=== PATIENT | male | born 1935 | race Caucasian/White ===

== ENCOUNTER 2017-01-20 15:42 | Inpatient (IN) | payer OTHER, MEDICARE ==
[~2017-01-20] VITALS: Ht 182.9 cm; Wt 102.1 kg
[~2017-01-20 15:42] MED LIST: ASPI81TA2 PO; FURO20TA4 PO; GLU500 PO; LISI-217 PO; PRIM50TA31 PO; PRO20 PO; SIMV40TA2 PO
[2017-01-20 15:50] VITALS: BP 82/49; PULSE 81; RESP 14; TEMP 97; O2SAT 96
--- NOTE | 2017-01-20 16:20 | NUR ---
Patient to ER bed 6 to gown for evaluation. Side rails up. Report given to Violet BAZAN.
--- NOTE | 2017-01-20 16:36 | NUR ---
ER at bedside examining patient.
--- NOTE | 2017-01-20 16:36 | NUR ---
Placed on cardiac sonographer, blood pressure machine and pulse oximeter. To gown for exam. Side rails up.
--- NOTE | 2017-01-20 16:37 | NUR ---
# 20 gauge angiocath placed to right hand. Use of asceptic technique. Opsite placed over site. Blood return noted. Blood for lab drawn from site. Flushed with 10 cc of normal saline. No evidence of infiltration noted. Patient tolerated well.
--- NOTE | 2017-01-20 16:40 | NUR ---
pt O2 sat 91% on room air, placed pt on O2 2L nasal cannula, o2 sat increased to 97%
--- NOTE | 2017-01-20 16:43 | NUR ---
brought in via wheelchair accompanied by his ,c/o general weakness.falling twice in the past two weeks,pt is awake,alert,oriented x4. speech is clear,equal combiner,both legs are weak. breath even,non-labor,skin is warm and pink.
--- NOTE | 2017-01-20 16:48 | NUR ---
transported to ct scan via [facility]
[2017-01-20] MEDS ORDERED: TRAZ-126 PO (16:54)
[2017-01-20] MEDS ORDERED: LIP40 PO (17:02)
[2017-01-20] MEDS ORDERED: BRIN8DRO BOTH EYES ×2 (17:03→17:06)
--- NOTE | 2017-01-20 17:04 | NUR ---
returned back from the ct can
[2017-01-20] MEDS ORDERED: TRAV2.5D BOTH EYES (17:05)
[2017-01-20 17:20] LABS: BASOPHILS # (AUTO) 0.1 K/uL (0.0-0.2); BASOPHILS % (AUTO) 0.6 % (0.0-2.0); EOSINOPHILS # (AUTO) 0.7 K/uL (0.0-0.4); EOSINOPHILS % (AUTO) 7.6 % (0.0-4.0); HEMATOCRIT 38.8 % (36-54); HEMOGLOBIN 13.1 g/dL (14.0-18.0); MEAN CORPUSCULAR HEMOGLOBIN 31 pg (27-31); MEAN CORPUSCULAR HGB CONC 34 % (32-36); MEAN CORPUSCULAR VOLUME 93 fL (79.0-98.0); MONOCYTES # (AUTO) 0.6 K/uL (0.0-1.0); MONOCYTES % (AUTO) 6.5 % (1.7-9.3); NEUTROPHILS # (AUTO) 4.8 K/uL (1.8-7.7); NEUTROPHILS % (AUTO) 52.3 % (40.0-70.0); PLATELET COUNT (AUTO) 141 K/uL (130-430); RED BLOOD CELL COUNT(AUTO) 4.17 MIL/uL (4.2-6.2); RED CELL DISTRIBUTION WIDTH 12.6 % (9.0-15.0); WHITE BLOOD COUNT (AUTO) 9.2 K/uL (4.8-10.8)
[2017-01-20 17:29] LABS: CALCIUM 8.9 mg/dL (8.4-11.0); CHLORIDE 104 mmol/L (98-107); CREATININE 1.46 mg/dL (0.55-1.30); GLUCOSE 108 mg/dL (70-99); POTASSIUM 3.7 mmol/L (3.5-5.1); PROTHROMBIN TIME 10.4 SECS (9.5-12.5); SODIUM SERUM 137 mmol/L (136-145); UREA NITROGEN, BLOOD 22 mg/dL (8-21)
[2017-01-20 17:33] LABS: ANION GAP < 3 (5-15)
--- NOTE | 2017-01-20 17:33 | NUR ---
Medication reconciliation completed by esthela BAZAN with information provided by family. Any prior medication reconciliation on file was reviewed and corrected.
[2017-01-20 17:46] LABS: ALANINE AMINOTRANSFERASE 31 U/L (12-78); ALBUMIN 3.3 g/dL (3.4-4.8); ASPARTATE AMINOTRANSFERASE 21 U/L (10-37); FREE T4 (FREE THYROXINE) 0.5 ng/dL (0.6-1.6); TOTAL BILIRUBIN 0.2 mg/dL (0.0-1.0); TOTAL PROTEIN, SERUM 6.6 g/dL (6.4-8.3)
[2017-01-20 17:49] LABS: ALCOHOL, BLOOD < 3 mg/dL (<10)
--- NOTE | 2017-01-20 18:26 | NUR ---
# 14 FR In and Out catheter with use of sterile technique. Immediate return of 100ml urine noted. Urine sample collected and sent to lab. Pt tolerated procedure . Patient unable to toilet self.
[2017-01-20] MEDS ORDERED: cefTRIAXone 1 GM IVPB PREMIX 50 ML IV ONE (18:30)
[2017-01-20] MEDS ORDERED: NACL 0.9% 1,000 ML IV ONE (18:30)
[2017-01-20 18:47] LABS: BARBITURATE, URINE POSITIVE (NEG <=200); BENZODIAZEPINE, URINE NEGATIVE (NEG <=150); CANNABINOID, URINE NEGATIVE (NEG <=50); COCAINE, URINE NEGATIVE (NEG <=150); METHAMPHETAMINES SCREEN,URINE NEGATIVE (NEG <=500); OPIATE, URINE NEGATIVE (NEG <=100); PHENCYCLIDINE SCREEN,URINE NEGATIVE (NEG <=25); UR TRICYCLIC ANTIDEPRESSANTS NEGATIVE (NEG <=300); URINE AMPHETAMINE NEGATIVE (NEG <=500); URINE METHADONE NEGATIVE (NEG <=200); URINE OXYCODONE SCREEN NEGATIVE (NEG <=100); URINE PROPOXYPHENE SCREEN NEGATIVE (NEG <=300)
--- NOTE | 2017-01-20 18:55 | NUR ---
decision for admission,Dr england at bedside examing pt and speaking to the family
--- NOTE | 2017-01-20 19:06 | NUR ---
hand off to mine shifter Josseline BAZAN.
[2017-01-20] MEDS ORDERED: INSULIN ASPART 100 UNITS/ML, 10 ML VIAL (NovoLOG) SUBCUT PRN (19:15)
--- NOTE | 2017-01-20 19:34 | NUR ---
ADMIT NOTE Received pt from ER to the floor with a diagnosis of ALOC. Admission process initiated.
--- NOTE | 2017-01-20 19:40 | NUR ---
Patient will be admitted under the care of Dr. Stiles. Admitted to telemetry unit. Will go to room 105A. Summary report printed. Report will be given at bedside.
--- NOTE | 2017-01-20 19:41 | NUR ---
Patient transported to room 105 by 1 RN and 1 via gurney without incident. No acute distress or SOB noted upon transport to the room. Vital signs within normal limits. Report given to BENI Briones. All belongings put in a bag and left at bedside. at bedside.
[2017-01-20 19:45] VITALS: BP 124/69; PULSE 56; RESP 18; TEMP 98; O2SAT 94
--- NOTE | 2017-01-20 20:00 | NUR ---
Nursing Note Pt is resting comfortably in bed with family members at the bedside. Plan of care was discussed with pt and family. All their questions were answered. Pt denies pain or discomfort at this time. Speech is clear and pt is able to make his needs known. Pt was oriented to his room and surrounding. Skin is warm and dry to touch. No signs or symptoms of hypoglycemia or hyperglycemia noted. IV site in Rt hand is patent and no signs of infiltration noted. Fall precautions are in place due to high risk for fall (Juárez score of 85). Pt has had multiples falls and two brain surgeries for Subdural Hematomas in 2013 and 2015. Call light is with pt and bed alarm is on. Pt was instructed to call for assistance as needed and pt verbalized understanding. Pt was able to demonstrate use of call light. Three side rails are up. Bed is in the lowest and locked positions. Pt's room is across for the Nurses' Station and pt will be monitored closely to prevent him from falling. Pt is incontinent of urine and will be given incontinent care as needed with barrier cream application to prevent skin breakdown. Pt will be repositioned from side to side every 2 hours due to Clinton score of 18 and limited mobility.
[2017-01-20] MEDS ORDERED: KCL 20 mEq in 100 mL (PREMIX) 100 ML IV ONE (20:26)
[2017-01-20] MEDS: PRIMIDONE 50 MG TABLET PO SCH (20:39)
--- NOTE | 2017-01-20 20:40 | NUR ---
Blood Sugar Accucheck 98. Skin remains warm and dry to touch. Family members are still visiting at the bedside. Pt was given 2 one half Wykoff sandwiches, 2 pudding cups and 1 cup of orange juice per family's request and pt ate 100%. Will continue to monitor pt.
[2017-01-20] MEDS: POTASSIUM CHLORIDE 10 MEQ in NACL 0.9% 1,000 ML IV SCH (20:42)
--- NOTE | 2017-01-20 22:00 | NUR ---
Rounds pt is sleeping without any respiratory distress noted. Fall precautions are in place.
[2017-01-20] MEDS ORDERED: ACETAMINOPHEN 650 MG SUPP.RECT RC PRN (22:30)
[2017-01-20 23:55] VITALS: BP 126/78; PULSE 62; RESP 18; TEMP 97.2; O2SAT 94
--- NOTE | 2017-01-21 | NUR ---
Rounds Pt continues to sleep without any respiratory distress noted. Fall precautions are in place and IVF is infusing well.
--- NOTE | 2017-01-21 02:00 | NUR ---
Rounds Pt is sleeping without any distress noted. IVF is infusing well. Call light is with pt and bed alarm is on.
--- NOTE | 2017-01-21 04:00 | NUR ---
Rounds Pt is sleeping comfortably in bed without any acute distress noted. Fall precautions are in place.
[2017-01-21 04:06] VITALS: BP 137/73; PULSE 56; RESP 18; TEMP 97.4; O2SAT 97
--- NOTE | 2017-01-21 05:30 | NUR ---
Rounds Pt is sleeping comfortably in bed. No acute distress noted. IVF is infusing well.
--- NOTE | 2017-01-21 06:54 | NUR ---
Closing Note Pt is awake and resting comfortably in bed. No acute distress noted. IVF is infusing well and call light is with pt. All pt's needs were attended to. No fall or injury noted this shift. Accucheck 75 this AM and no Insulin coverage needed. Skin remains warm and dry to touch. Will endorse to day shift nurse.
[2017-01-21 07:28] LABS: BASOPHILS % (AUTO) 0.3 % (0.0-2.0); EOSINOPHILS # (AUTO) 0.6 K/uL (0.0-0.4); EOSINOPHILS % (AUTO) 8.4 % (0.0-4.0); HEMOGLOBIN 12.3 g/dL (14.0-18.0); LYMPHOCYTES % (AUTO) 40.8 % (20.5-51.5); MEAN CORPUSCULAR HEMOGLOBIN 32 pg (27-31); MEAN CORPUSCULAR HGB CONC 33 % (32-36); MEAN CORPUSCULAR VOLUME 94 fL (79.0-98.0); MONOCYTES # (AUTO) 0.6 K/uL (0.0-1.0); MONOCYTES % (AUTO) 7.7 % (1.7-9.3); NEUTROPHILS # (AUTO) 3.2 K/uL (1.8-7.7); NEUTROPHILS % (AUTO) 42.8 % (40.0-70.0); PLATELET COUNT (AUTO) 126 K/uL (130-430); RED BLOOD CELL COUNT(AUTO) 3.92 MIL/uL (4.2-6.2); RED CELL DISTRIBUTION WIDTH 13.2 % (9.0-15.0); WHITE BLOOD COUNT (AUTO) 7.4 K/uL (4.8-10.8)
--- NOTE | 2017-01-21 07:30 | NUR ---
INITIAL NOTE RECEIVED PATIENT FROM LITERACY EDUCATION PROFESSOR NURSE, PATIENT IS CURRENTLY RESTING IN BED, NO SIGNS OF DISTRESS NOTED, PATIENT HAS NO COMPLAINTS OF PAIN OR DISCOMFORT AT THIS TIME, ASSESSMENT COMPLETE, PATIENT HAS IV ON RIGHT HAND, IV FLUIDS INFUSING, NO SIGNS OF INFILTRATION NOTED, PATIENT IS CURRENTLY ON O2 SATING AT 95%, INSTRUCTED PATIENT TO USE CALL HOOPER IF ASSISTANCE IS NEEDED, PATIENT VERBALIZED UNDERSTANDING, CALL HOOPER LEFT NEXT TO PATIENT'S HAND, BED IN LOWEST POSITION, BED ALARM ON, TWO SIDE RAILS UP FOR PATIENT'S SAFETY, FALL PRECAUTIONS IN PLACE, WILL CONTINUE TO MONITOR PATIENT.
[2017-01-21 07:55] LABS: ALANINE AMINOTRANSFERASE 28 U/L (12-78); ALBUMIN 2.9 g/dL (3.4-4.8); ANION GAP 2 (5-15); ASPARTATE AMINOTRANSFERASE 18 U/L (10-37); CALCIUM 8.6 mg/dL (8.4-11.0); CHLORIDE 107 mmol/L (98-107); CREATININE 1.27 mg/dL (0.55-1.30); GLUCOSE 93 mg/dL (70-99); POTASSIUM 3.7 mmol/L (3.5-5.1); SODIUM SERUM 141 mmol/L (136-145); TOTAL BILIRUBIN 0.2 mg/dL (0.0-1.0); UREA NITROGEN, BLOOD 16 mg/dL (8-21)
[2017-01-21 08:03] VITALS: BP 137/71; PULSE 66; RESP 18; TEMP 96.9
[2017-01-21] MEDS: FAMOTIDINE 20 MG TABLET PO SCH (08:16)
[2017-01-21] MEDS: FLUoxetine HCL 20 MG CAPSULE (PROzac) PO SCH (08:16)
[2017-01-21] MEDS: ASPIRIN 81 MG TAB.CHEW PO SCH (08:16)
[2017-01-21] MEDS: PRIMIDONE 50 MG TABLET PO SCH ×3 (08:17→21:05)
--- NOTE | 2017-01-21 08:25 | NUR ---
MEDICATION PATIENT RECEIVED MORNING MEDICATIONS, EDUCATED PATIENT ON POTENTIAL SIDE EFFECTS; PATIENT VERBALIZED UNDERSTANDING, CALL HOOPER LEFT WITHIN REACH OF PATIENT, NO OTHER NEEDS AT THIS TIME, FALL PRECAUTIONS IN PLACE.
--- NOTE | 2017-01-21 09:21 | NUR ---
Nutrition Update Clinton Scale 18 noted. Pt admitted for ALOC. Diet: [facility] BMI: 30.5 kg/m2 RD to follow per nutrition care standards.
--- NOTE | 2017-01-21 10:00 | NUR ---
DR. MG HOLLIDAY CALLED AND GAVE ORDERS FOR HEMODIALYSIS TODAY BASED ON PATIENT'S LABS FOR TODAY, WILL ENDORSE TO SYSTEMS TESTER TO CALL DIALYSIS NURSE. Addendum: 01/21/17 at 1853 by Umesh Jaramillo RN WRONG PATIENT.
--- NOTE | 2017-01-21 10:00 | NUR ---
DR. MG HOLLIDAY CALLED AND GAVE ORDERS FOR HEMODIALYSIS TODAY BASED ON PATIENT'S LABS FOR TODAY, WILL ENDORSE TO CEPHALOMETRIC TRACER TO CALL DIALYSIS NURSE. Addendum: 01/21/17 at 1857 by Umesh Jaramillo RN WRONG PATIENT
--- NOTE | 2017-01-21 10:55 | NUR ---
RN ROUNDS PATIENT IS CURRENTLY RESTING IN BED, NO COMPLAINTS OF PAIN OR DISCOMFORT, FAMILY IS AT BEDSIDE, CALL HOOPER LEFT NEXT TO PATIENT, BED IN LOWEST POSITION, FALL PRECAUTIONS IN PLACE, WILL CONTINUE TO MONITOR PATIENT.
[2017-01-21] MEDS: POTASSIUM CHLORIDE 10 MEQ in NACL 0.9% 1,000 ML IV SCH (11:10)
--- NOTE | 2017-01-21 12:02 | NUR ---
PATIENT IS OFF OF UNIT FOR TEST
--- NOTE | 2017-01-21 12:55 | NUR ---
PATIENT BACK ON UNIT PATIENT IS BACK FROM MRI TEST, GLUCOSE CHECKED LATE BECAUSE PATIENT WAS LEAVING UNIT; GLUCOSE IS 80 NO NEED FOR INSULIN, PATIENT IS CURRENTLY RESTING IN BED, FAMILY IS AT BEDSIDE, NO OTHER NEEDS AT THIS TIME, CALL LIGHT LEFT NEXT TO PATIENT'S HAND, BED IN LOWEST POSITION, BED ALARM ON, WILL CONTINUE TO MONITOR PATIENT, FALL PRECAUTIONS IN PLACE.
[2017-01-21 13:02] VITALS: BP 122/66; PULSE 59; RESP 17; TEMP 97.1; O2SAT 96
--- NOTE | 2017-01-21 14:40 | NUR ---
RN ROUNDS PATIENT IS CURRENTLY RESTING IN BED, FAMILY MEMBER AT BEDSIDE WITH PATIENT, PATIENT STATES HE HAS NO DISCOMFORT OR PAIN AT THIS TIME, NO SIGNS OF DISTRESS NOTED, CALL HOOPER LEFT IN PATIENT'S HAND, BED IN LOWEST POSITION, BED ALARM ON, TWO SIDE RAILS UP, FALL PRECAUTIONS IN PLACE. WILL CONTINUE TO MONITOR.
--- NOTE | 2017-01-21 16:07 | NUR ---
Discharge Planning TRAM INSPECTOR met with patient, and son at bedside. Patient's would like a wheelchair to get patient to therapy. Patient had home health PT previously with [facility] and patient was not happy with home PT. Patient prefers outpatient PT at [facility]. TRAM INSPECTOR provided brochures for private pay alf home help. Patient stated he is unwilling to go to a SNF for rehab. TRAM INSPECTOR notified CM and DC Planning of above.
--- NOTE | 2017-01-21 16:50 | NUR ---
RN ROUNDS PATIENT IS CURRENTLY RESTING IN BED WITH EYES CLOSED, NO SIGNS OF DISTRESS NOTED, FALL PRECAUTIONS IN PLACE. WILL CONTINUE TO MONITOR.
[2017-01-21 16:51] VITALS: BP 119/67; PULSE 60; RESP 17; TEMP 98.8; O2SAT 97
--- NOTE | 2017-01-21 17:00 | NUR ---
DR. JOSE ANGEL WALTER AWARE OF MRI RESULTS NO NEW ORDERS GIVEN
[2017-01-21] MEDS: ATORVASTATIN 20 MG TABLET PO SCH (17:44)
[2017-01-21] MEDS: traZODone HCL 50 MG TABLET (DESYREL) PO SCH (17:44)
[2017-01-21] MEDS: TRAVOPROST 0.004% 2.5 ML EYE DROPS BOTH EYES SCH ×2 (17:45→18:00)
--- NOTE | 2017-01-21 18:00 | NUR ---
DR. JOSE ANGEL WALTER IS RECOMMENDING PATIENT GO TO [facility] WHEN PATIENT GETS DISCHARGED.
--- NOTE | 2017-01-21 18:50 | NUR ---
CLOSING NOTE PATIENT IS CURRENTLY SITTING UP IN BED, FAMILY MEMBERS AT BEDSIDE, ALL NEEDS MET, NO OTHER NEEDS AT THIS TIME, WILL ENDORSE PATIENT TO BENDING FRAME OPERATOR NURSE, CALL HOOPER LEFT NEXT TO PATIENT'S HAND, BED IN LOWEST POSITION, BED ALARM ON, TWO SIDE RAILS UP, FALL PRECAUTIONS IN PLACE.
[2017-01-21 19:30] VITALS: BP 102/59; PULSE 62; RESP 18; TEMP 97.5; O2SAT 98
--- NOTE | 2017-01-21 19:30 | NUR ---
notes received the pt from the day nurse.pt a/a/ox4 family are at the bedside.no c/o pain or discomfort.iv infusing well into rt hand,no redness or swelling noted.bed alarm is on .pt was educated on the call light.o2 via nc in place at 2l/min.call light within reach ,safety measures in progress.continue to monitor.
[2017-01-21] MEDS ORDERED: COMMUNICATION ORDER XX ONE (19:45)
--- NOTE | 2017-01-21 21:57 | NUR ---
notes,pt sleeping,accucheck was 131,no insulin needed per s/s.continue to monitor.
--- NOTE | 2017-01-21 23:28 | NUR ---
notes pt sleeping.family member is asleep next to the pt.call light within reach.continue to monitor.
[2017-01-22 00:02] VITALS: BP 125/65; PULSE 54; RESP 18; TEMP 97.2; O2SAT 97
--- NOTE | 2017-01-22 01:47 | NUR ---
notes pt remains asleep.no distress noted.call light within reach.continue to monitor
[2017-01-22] MEDS: POTASSIUM CHLORIDE 10 MEQ in NACL 0.9% 1,000 ML IV SCH (03:31)
--- NOTE | 2017-01-22 03:44 | NUR ---
notes pt awake alert.voided in the urinal clear yellow urine.spec.sent to the lab.
[2017-01-22 04:20] VITALS: BP 144/91; PULSE 62; RESP 18; TEMP 97.5; O2SAT 97
[2017-01-22 05:10] LABS: BILIRUBIN,URINE NEGATIVE (NEGATIVE); BLOOD, URINE NEGATIVE (NEGATIVE); CLARITY/URINE CLEAR (CLEAR); COLOR,URINE YELLOW (YELLOW); GLUCOSE,URINE NEGATIVE (NEGATIVE); KETONES,URINE NEGATIVE (NEGATIVE); LEUKOCYTE ESTERASE ,URINE NEGATIVE (NEGATIVE); NITRITE, URINE NEGATIVE (NEGATIVE); PROTEIN URINE NEGATIVE (NEGATIVE); UROBILINOGEN,URINE 0.2 (0.2-1.0)
--- NOTE | 2017-01-22 05:32 | NUR ---
notes urinal emptied of 400cc clear yellow urine .pt sleeping.no distress noted.continue to monitor.
--- NOTE | 2017-01-22 06:24 | NUR ---
CLOSING NOTES ACCUCHECK WAS 96,NO INSULIN NEEDED.PT RESTING WITH NO COMPLAINTS.CALL LIGHT WITHIN REACH.WILL ENDORSE THE CARE OF THE PT TO THE DAY NURSE.
--- NOTE | 2017-01-22 08:00 | NUR ---
AM ROUNDS PT A/O, DENIES PAIN AT THIS TIME...IVF INFUSING WELL TO RH..PT MAKES NEEDS KNOWN..BED ALARM ON...CALL LIGHT/PHONE W/IN REAC[facility].....WILL CONT TO MONITOR
[2017-01-22] MEDS: FAMOTIDINE 20 MG TABLET PO SCH (09:58)
[2017-01-22] MEDS: ASPIRIN 81 MG TAB.CHEW PO SCH (09:59)
[2017-01-22] MEDS: FLUoxetine HCL 20 MG CAPSULE (PROzac) PO SCH (09:59)
[2017-01-22] MEDS: PRIMIDONE 50 MG TABLET PO SCH ×2 (09:59→15:12)
[2017-01-22] MEDS ORDERED: FLUoxetine HCL 10 MG CAPSULE (PROzac) PO ONE (10:15)
[2017-01-22 12:27] VITALS: BP 146/83; PULSE 60; RESP 17; TEMP 97.6; O2SAT 98
--- NOTE | 2017-01-22 12:54 | NUR ---
DISCHARGE PLANNING DC planning order for [facility] evaluation. Faxed referral for evaluation pending PT notes. LEIA Velasco made aware. Addendum: 01/22/17 at 1357 by Sariah Newell DP Faxed referral to [facility] Ext:[phone] [phone] requesting to evaluate patient for short term placement. Per if not accept will arrange outpt PT [facility] [phone]. Will follow up. Addendum: 01/22/17 at 1440 by Sariah Newell DP spoke with Eloisa at [facility] who will assign evaluation to liaison. Eloisa will make liaison aware plan to discharge patient today. Addendum: 01/22/17 at 1620 by Sariah Newell DP spoke with Puja at [facility] patient accepted and assigned to room 123 BENI cohn report [phone] Ext:[phone] bed available after 6pm. BENI Hager made aware. Called [facility] [phone] spoke with Luis arranged S transport pharmacy picking technician 8pm. Placed transportation packet in nurses station. Spoke with patient Bri Terrell [phone] who is agreeable with patient discharge to [facility] today.
[2017-01-22 16:42] VITALS: BP 122/68; PULSE 58; RESP 16; TEMP 97.6; O2SAT 96
--- NOTE | 2017-01-22 16:46 | NUR ---
ROUNDS PT SITTING UP IN CHAIR...DENIES PAIN OR DISCOMFORT..FAMILY AT BEDSIDE...AWAITING POSSIBLE TRANSFER TO SNF...WILL CONT TO MONITOR
--- NOTE | 2017-01-22 17:34 | NUR ---
ASSISTED PT TO RESTROOM
[2017-01-22] MEDS: ATORVASTATIN 20 MG TABLET PO SCH (18:49)
[2017-01-22] MEDS: traZODone HCL 50 MG TABLET (DESYREL) PO SCH (18:49)
[2017-01-22] MEDS: TRAVOPROST 0.004% 2.5 ML EYE DROPS BOTH EYES SCH (18:50)
--- NOTE | 2017-01-22 19:28 | NUR ---
REPORTED CALLED TO BENI BARRERA @ [facility] [phone] PT WILL GO TO ROOM [id number]
--- NOTE | 2017-01-22 19:36 | NUR ---
INITIAL NOTE PT. RECEIVED AAOX4, NO S/S OF SOB OR DISTRESS. VSS. PT. DENIES PAIN. FAMILY IS AT THE BEDSIDE. PT. AWAITING DISCHARGE AT THIS TIME. WILL FINALIZE DISCHARGE PACKET AND AWAIT TRANSPORT ARRIVAL. CALL LIGHT IN REACH.
[2017-01-22 19:51] VITALS: BP 120/70; PULSE 66; RESP 18; TEMP 97.5; O2SAT 94
--- NOTE | 2017-01-22 20:30 | NUR ---
RN NOTE PT. SITTING UP IN CHAIR. AMBULANCE IS HERE TO AVIATION MAINTENANCE TECHNICIAN PT. AND TAKE HIM TO [facility]. PACKET HAS BEEN PREPARED, TRANSITIONAL CARE INFORMATION PROVIDED. BELONGINGS HAVE BEEN GATHERED. FAMILY WITH PT. PTFrancy STABLE.
[2017-01-23 06:09] LABS: FOLATE (FOLIC ACID) 18.7 ng/mL (>3.0)
[2017-01-23] MEDS ORDERED: FLUoxetine HCL 10 MG CAPSULE (PROzac) PO SCH (09:00)
== END 2017-01-22 20:50 | DRG 884 ==
LOC: SED 15:42 → STU 19:10 → SMU 01-21 14:16
PROVIDERS: ADMIT Internal Medicine; ATTEND Internal Medicine
DX: F03.90 Unspecified dementia, unspecified severity, without behavioral disturbance, psychotic disturbance, mood disturbance, and anxiety (principal); E44.0 Moderate protein-calorie malnutrition; R41.82 Altered mental status, unspecified; R26.2 Difficulty in walking, not elsewhere classified; I10 Essential (primary) hypertension; F32.9 Major depressive disorder, single episode, unspecified; E11.9 Type 2 diabetes mellitus without complications; E78.5 Hyperlipidemia, unspecified; E86.0 Dehydration; H40.9 Unspecified glaucoma; I25.10 Atherosclerotic heart disease of native coronary artery without angina pectoris; N28.9 Disorder of kidney and ureter, unspecified; Z91.81 History of falling; Z95.5 Presence of coronary angioplasty implant and graft; Z79.899 Other long term (current) drug therapy; I25.2 Old myocardial infarction; Z68.30 Body mass index [BMI] 30.0-30.9, adult
CPT/HCPCS: 36415; 70450-TC; 70551; 71010; 74000-TC; 80053; 80307; 81003; 82085; 82140-TC; 82550-TC; 82607; 82746; 82962; 83605; 83880; 84439; 84443-TC; 84484; 85025; 85610-TC; 87040-TC; 87081; 93005; 96365; 97116-GP; 99285; G0482; J0696; J1815; J3480; J7030

== ENCOUNTER 2018-05-19 09:53 | Inpatient (IN) | payer OTHER, MEDICARE ==
[~2018-05-19] VITALS: Ht 180.3 cm; Wt 105.7 kg
[2018-05-19 09:53] VITALS: BP_SYST 117
[~2018-05-19 09:53] MED LIST changes: +ASPI-1155 PO; -ASPI81TA2 PO; +BRIN8DRO BOTH EYES; +BUPIVACAINE /PF 0.25% 30 ML VIAL INJ ONE; +BUPIVACAINE /PF 0.75% 10 ML VIAL INJ ONE; +BUPIVACAINE LIPOSOME/PF 266 MG/20 ML VIAL INFIL ONE; +CEFAZOLIN 2 GM IVPB PREMIX 50 ML IV ONE; +LIDOCAINE 1% 10 MG/ML, 20 ML MDV INJ ONE; +LIP40 PO; -LISI-217 PO; +LR 1,000 ML IV.SOLN IV ONE; +MIDAZOLAM HCL 5 MG/5 ML VIAL IVP ONE; +NORMAL SALINE 10 ML VIAL IVP ONE; +PROPOFOL 200MG/ 20ML VIAL (DIPRIVAN) IV ONE; -SIMV40TA2 PO; +TRAV2.5D BOTH EYES; +TRAZ-126 PO; +ePHEDrine sulfate 50 MG/ML VIAL IVP ONE
--- NOTE | 2018-05-19 09:53 | NUR ---
BIB CARE BLS from home. Placed in room 02. Placed on quality assurance monitor body, blood pressure machine and pulse oximeter. To gown for exam. Side rails up. Report given to BENI Tobar.
[2018-05-19] MEDS ORDERED: MULT-1089 PO (10:18)
[2018-05-19] MEDS ORDERED: CYAN100T PO (10:18)
[2018-05-19] MEDS ORDERED: CHOL200041 PO (10:18)
--- NOTE | 2018-05-19 10:18 | NUR ---
Medication reconciliation completed with information provided by . Any prior medication reconciliation on file was reviewed and corrected.
--- NOTE | 2018-05-19 10:22 | NUR ---
DR MARIE AT BEDSIDE FOR EVALUATION
--- NOTE | 2018-05-19 10:22 | NUR ---
ER Dr. Bob at bedside examining patient.
[2018-05-19] MEDS ORDERED: fentaNYL CITRATE/PF 100 MCG/2 ML AMP IVP ONE ×2 (10:45→13:00)
[2018-05-19 11:02] LABS: EOSINOPHILS # (AUTO) 0.3 K/uL (0.0-0.4); EOSINOPHILS % (AUTO) 2.6 % (0.0-4.0); HEMATOCRIT 42.2 % (36-54); HEMOGLOBIN 14.4 g/dL (14.0-18.0); LYMPHOCYTES # (AUTO) 2.8 K/uL (1.0-5.5); LYMPHOCYTES % (AUTO) 21.3 % (20.5-51.5); MEAN CORPUSCULAR HEMOGLOBIN 32 pg (27-31); MEAN CORPUSCULAR HGB CONC 34 % (32-36); MEAN CORPUSCULAR VOLUME 94 fL (79.0-98.0); MONOCYTES # (AUTO) 0.7 K/uL (0.0-1.0); MONOCYTES % (AUTO) 5.1 % (1.7-9.3); PLATELET COUNT (AUTO) 113 K/uL (130-430); RED BLOOD CELL COUNT(AUTO) 4.48 MIL/uL (4.2-6.2); RED CELL DISTRIBUTION WIDTH 12.4 % (9.0-15.0); WHITE BLOOD COUNT (AUTO) 13.1 K/uL (4.8-10.8)
[2018-05-19 11:06] LABS: BASOPHILS % (AUTO) 0.2 % (0.0-2.0); NEUTROPHILS # (AUTO) 9.3 K/uL (1.8-7.7); NEUTROPHILS % (AUTO) 70.8 % (40.0-70.0)
[2018-05-19 11:08] LABS: ANION GAP 6 (5-15); CALCIUM 9.1 mg/dL (8.4-11.0); CHLORIDE 102 mmol/L (98-107); CREATININE 1.35 mg/dL (0.55-1.30); GLUCOSE 130 mg/dL (70-99); POTASSIUM 3.7 mmol/L (3.5-5.1); SODIUM SERUM 137 mmol/L (136-145); UREA NITROGEN, BLOOD 20 mg/dL (8-21)
[2018-05-19 11:13] LABS: ALANINE AMINOTRANSFERASE 27 U/L (12-78); ALBUMIN 3.3 g/dL (3.4-4.8); ASPARTATE AMINOTRANSFERASE 17 U/L (10-37); PROTHROMBIN TIME 9.8 SECS (9.5-12.5); TOTAL BILIRUBIN 0.4 mg/dL (0.0-1.0)
--- NOTE | 2018-05-19 11:14 | NUR ---
TAKEN TO RADIOLOGY VIA NGUYEN
--- NOTE | 2018-05-19 11:50 | NUR ---
BROUGHT BACK TO BED #2 FROM RADIOLOGY, FAMILY AT BEDSIDE FOR SUPPORT
--- NOTE | 2018-05-19 11:56 | NUR ---
DR MARIE AT BEDSIDE SPEAKING WITH FAMILY
--- NOTE | 2018-05-19 12:30 | NUR ---
TAKEN TO RADIOLOGY FOR MORE TESTING
--- NOTE | 2018-05-19 12:50 | NUR ---
RETURNED FROM RADIOLOGY AND PLACED BACK INTO BED #2, FAMILY AT BEDSIDE GIVING SUPPORT
--- NOTE | 2018-05-19 14:01 | NUR ---
RESTING QUIETLY, FAMILY AT BEDSIDE. ORDERS RECEIVED BY DR NICHOLSON AND ROOM ASSIGNED TO [facility]. AWAITING TO BE ADMITTED TO FLOOR
--- NOTE | 2018-05-19 14:20 | NUR ---
Patient will be admitted to care of DR NICHOLSON. Admitted to MED SURG unit. Will go to room 123-A. Belongings list completed. Summary report printed. Report will be given at bedside.
--- NOTE | 2018-05-19 14:40 | NUR ---
Admission Note Received patient from ER with diagnosis of left femoral fracture. Initial Plan of Care discussed-patient verbalized understanding. Family at bedside. Oriented to room, call light, pain management and safety.
[2018-05-19 14:43] VITALS: BP_SYST 143
--- NOTE | 2018-05-19 15:06 | NUR ---
CONSULTATION PAGED/CALLED Reason for Consultation: [] L FEMORAL FX Person Who was Notified: [] BARBARA Consulting Physician: [] DR Sharad THOMAS, CUSTOMS INSPECTOR FOR DR OLEA Staff Radiation Therapist Specialty: [] ORTHO Ordering Physician: [] DR Flory NICHOLSON
[2018-05-19] MEDS: KCL 20 mEq in D5/0.45NS 1000mL 1,000 ML IV SCH (15:34)
--- NOTE | 2018-05-19 16:30 | NUR ---
End of shift: Connected to [place] traction 5 lbs. Left foot is externally rotated. Dr. Gross is aware that patient needs pain medicine. Family at the bedside.
[2018-05-19] MEDS ORDERED: FUROSEMIDE 20 MG TABLET PO SCH (18:45)
[2018-05-19] MEDS ORDERED: MILK OF MAGNESIA 30 ML UDC PO PRN ×2 (18:45→19:30)
[2018-05-19] MEDS ORDERED: HYDROmorphone 1 MG INJ. 1 MG/ML AMPUL ONE (18:58)
--- NOTE | 2018-05-19 19:06 | NUR ---
CONSULTATION PAGED/CALLED Reason for Consultation: CAD Person Who was Notified: MICHAEL Consulting Physician: [employer] Consultant Specialty: CARDIO Ordering Physician: BHARAT
--- NOTE | 2018-05-19 20:00 | NUR ---
OPENING SHIFT NOTE patient is alert oriented x4. IV on right wrist, 20G, infusing 20 mEq KCL D5-1/2NS at 75ml/hr, no infiltration noted. plan of care discussed advised patient to call PRN. patient verbalized understanding. will continue to monitor.
[2018-05-19 20:46] VITALS: BP_SYST 139
[2018-05-19] MEDS: PRIMIDONE 250 MG TABLET PO SCH (21:15)
[2018-05-19] MEDS: BRIMONIDINE TARTRATE 0.2% 5 mL EYE DROPS OP SCH (21:16)
[2018-05-19] MEDS: DORZOLAMIDE 2% OPHTHALMIC SOLN 5ML OP SCH (21:17)
--- NOTE | 2018-05-19 21:20 | NUR ---
CONSENT SIGNED consent obtained from patient for left hip hemiarthroplasty. asked patient if he had any questions or concerns patient denies. will continue to monitor.
[2018-05-19] MEDS: INSULIN REGULAR, HUMAN 100 UNITS/ML, 10 ML VIAL (novoLIN R) SUBCUT PRN (21:21)
--- NOTE | 2018-05-20 00:06 | NUR ---
ROUNDS patient states that he wants to be pulled up. helped patient to be pulled up in bed. patient denies pain. will continue to monitor. call light within reach.
[2018-05-20 00:20] VITALS: BP_SYST 128
--- NOTE | 2018-05-20 02:30 | NUR ---
ROUNDS patient sleeping comfortably, no distress noted. will continue to monitor.
[2018-05-20] MEDS: HYDROmorphone 1 MG INJ. 1 MG/ML AMPUL IVP PRN ×3 (03:23→17:10)
--- NOTE | 2018-05-20 03:33 | NUR ---
PAIN patient complaining of 9/10 pain. requesting pain medication. administered Dilaudid per order. advised patient to call PRN. patient verbalized understanding. will continue to monitor.
[2018-05-20] MEDS: KCL 20 mEq in D5/0.45NS 1000mL 1,000 ML IV SCH ×2 (05:03→18:32)
--- NOTE | 2018-05-20 05:29 | NUR ---
ROUNDS patient sleeping, easily awoken. patient denies pain. informed patient that we need to collect urine and to urinate on specimen cup. patient verbalized understanding. will continue to monitor.
[2018-05-20] MEDS: INSULIN REGULAR, HUMAN 100 UNITS/ML, 10 ML VIAL (novoLIN R) SUBCUT PRN (06:20)
--- NOTE | 2018-05-20 06:22 | NUR ---
BLADDER SCAN bladder scan performed. no residual noted. will continue to monitor.
[2018-05-20 06:48] LABS: ANION GAP 2 (5-15); CALCIUM 8.6 mg/dL (8.4-11.0); CHLORIDE 106 mmol/L (98-107); CREATININE 1.18 mg/dL (0.55-1.30); GLUCOSE 119 mg/dL (70-99); POTASSIUM 4.1 mmol/L (3.5-5.1); SODIUM SERUM 137 mmol/L (136-145); UREA NITROGEN, BLOOD 14 mg/dL (8-21)
[2018-05-20 06:50] LABS: PROTHROMBIN TIME 9.8 SECS (9.5-12.5)
[2018-05-20 07:17] LABS: BILIRUBIN,URINE NEGATIVE (NEGATIVE); CLARITY/URINE CLEAR (CLEAR); COLOR,URINE YELLOW (YELLOW); GLUCOSE,URINE NEGATIVE (NEGATIVE); KETONES,URINE NEGATIVE (NEGATIVE); LEUKOCYTE ESTERASE ,URINE NEGATIVE (NEGATIVE); NITRITE, URINE NEGATIVE (NEGATIVE); PH,URINE 7.5 (5.0-8.0); PROTEIN URINE TRACE (NEGATIVE); UROBILINOGEN,URINE 0.2 (0.2-1.0)
--- NOTE | 2018-05-20 07:26 | NUR ---
END OF SHIFT care endorsed to dayshift RN. no distress noted with patient.
[2018-05-20 07:31] LABS: BASOPHILS # (AUTO) 0.1 K/uL (0.0-0.2); BASOPHILS % (AUTO) 1.1 % (0.0-2.0); EOSINOPHILS # (AUTO) 0.4 K/uL (0.0-0.4); EOSINOPHILS % (AUTO) 4.5 % (0.0-4.0); HEMATOCRIT 39.5 % (36-54); HEMOGLOBIN 12.9 g/dL (14.0-18.0); LYMPHOCYTES # (AUTO) 2.8 K/uL (1.0-5.5); LYMPHOCYTES % (AUTO) 28.3 % (20.5-51.5); MEAN CORPUSCULAR HEMOGLOBIN 31 pg (27-31); MEAN CORPUSCULAR HGB CONC 33 % (32-36); MEAN CORPUSCULAR VOLUME 94 fL (79.0-98.0); MONOCYTES # (AUTO) 0.7 K/uL (0.0-1.0); MONOCYTES % (AUTO) 7.4 % (1.7-9.3); NEUTROPHILS # (AUTO) 5.8 K/uL (1.8-7.7); NEUTROPHILS % (AUTO) 58.7 % (40.0-70.0); PLATELET COUNT (AUTO) 95 K/uL (130-430); RED CELL DISTRIBUTION WIDTH 12.7 % (9.0-15.0); WHITE BLOOD COUNT (AUTO) 9.8 K/uL (4.8-10.8)
[2018-05-20 07:40] LABS: BLOOD, URINE TRACE (NEGATIVE)
[2018-05-20 07:46] LABS: BACTERIA,URINE FEW /HPF (None Seen); MUCUS,URINE None Seen /LPF (None Seen); RBC,URINE 0-3 /HPF (0-3); WBC,URINE 0-3 /HPF (0-3)
[2018-05-20] MEDS: metFORMIN HCL 500 MG TABLET PO SCH ×2 (08:00→17:14)
--- NOTE | 2018-05-20 08:00 | NUR ---
Opening Note Report received from [facility] shift nurse. Patient left lower extremity is on Mccain's traction. IV is on the right wrist 20g running NS+20KCL@75. Left pedal pulse is palpable. Call light is within reach and bed is in low position. Will continue to monitor.
[2018-05-20 08:32] VITALS: BP_SYST 134
[2018-05-20] MEDS: MULTIVITAMINS TAB 1 TABLET PO SCH (08:37)
[2018-05-20] MEDS: ASPIRIN 81 MG TAB.CHEW PO SCH (08:37)
--- NOTE | 2018-05-20 09:13 | NUR ---
Nutrition Update Clinton Scale 16 noted. Pt admitted for L femoral fracture. Diet: NPO BMI: 32.5 kg/m2 RD to follow per nutrition care standards.
[2018-05-20] MEDS: PRIMIDONE 250 MG TABLET PO SCH ×3 (09:43→21:04)
[2018-05-20] MEDS: BRIMONIDINE TARTRATE 0.2% 5 mL EYE DROPS OP SCH ×2 (09:44→21:06)
[2018-05-20] MEDS: DORZOLAMIDE 2% OPHTHALMIC SOLN 5ML OP SCH ×2 (09:44→21:05)
--- NOTE | 2018-05-20 10:12 | NUR ---
Rounds Patient is resting in bed. Call light is within reach.
--- NOTE | 2018-05-20 10:20 | NUR ---
Rounds Patient is resting in bed. Call light is within reach.
--- NOTE | 2018-05-20 11:35 | NUR ---
Spoke with Spoke with Dr. Hager. stated that the patient will have surgery tomorrow 05/21/18.
[2018-05-20 11:52] VITALS: BP_SYST 112
--- NOTE | 2018-05-20 11:53 | NUR ---
DISCHARGE PLANNING - REQUESTING FOR [facility] FOR SNF NEEDS Spoke with pt's at the bedside. She stated she is the main caregiver for pt at home. They live in a 2 story home - their son stay on the 2nd floor and pt and stay on the first floor. She stated that in case patient will need hip surgery and will need Physical Therapy or if patient will be more care, she is requesting SNF for pt to recover and Physical Therapy. She is requesting [facility] @ [address], [place], [place] to be the SNF she wants her to go to. As /pt is very familiar with the place and has been admitted there before and really likes it there.
--- NOTE | 2018-05-20 12:38 | NUR ---
Rounds Patient is resting in bed. Family is at the bedside.
--- NOTE | 2018-05-20 14:38 | NUR ---
Rounds Patient is resting in bed. Left pedal pulse is palpable. [place] traction is at 5 pounds
[2018-05-20 16:18] VITALS: BP_SYST 123
--- NOTE | 2018-05-20 16:33 | NUR ---
Rounds Patient is resting in bed. Call light is within reach.
[2018-05-20] MEDS: ATORVASTATIN 20 MG TABLET PO SCH (17:12)
[2018-05-20] MEDS: traZODone HCL 50 MG TABLET (DESYREL) PO SCH (17:14)
[2018-05-20] MEDS: LATANOPROST 2.5 ML DROPS (XALATAN) BOTH EYES SCH (17:15)
--- NOTE | 2018-05-20 18:38 | NUR ---
Closing Note Patient is resting in bed. [place] traction is in place with a 5 pound weight on the left lower extremity. Left pedal is palpable. IV is on the right wrist 20g running d51/2ns+20kcl@75. Call light is within reach. Will endorse care to the oncoming nurse.
--- NOTE | 2018-05-20 19:40 | NUR ---
Opening Notes Received patient in bed resting comfortably. AAOx3 and able to verbalize needs. Safety precaution in place for S/P fall. Bed alarm is active and patient made aware. [place] traction to the left leg with 5lb weight. NC at 2L with o2 sat at 97%. Patient is bedrest. IV on the right wrist 20g with fluids infusing and no s/s of infiltration or infection. Heart and lung sounds wnl. No pain or respiratory distress. Oriented the patient to the room and use of the call light. Will monitor on rounds for any change of condition.
[2018-05-20 20:00] VITALS: BP_SYST 132
--- NOTE | 2018-05-20 22:10 | NUR ---
Patient in bed asleep. No pain on left Lower extremity. O2 sat at 95% on 2L NC.
[2018-05-21] VITALS: BP_SYST 116
--- NOTE | 2018-05-21 00:12 | NUR ---
Patient slightly confused. Questioning where he is. Reoriented to the room. No pain or respiratory distress. Call light within reach.
--- NOTE | 2018-05-21 02:02 | NUR ---
Asleep in bed. No appearance of respiratory distress. Call light within reach.
--- NOTE | 2018-05-21 04:00 | NUR ---
IV Reinsertion and CHG Bath New IV placement Left Hand 20gauge. ChG bath given pending surgery. No complaints of pain or sob.
--- NOTE | 2018-05-21 06:53 | NUR ---
Closing Notes Patient awake in bed. Able to verbalize needs, AAOx3. No pain noted. Left lower extremity able to flex and extend foot, with good circulation. Patient has been NPO since midnight. Surgery scheduled for 0900. [place] traction in place and being tolerated. Safety precautions in place. All needs have been met and will endorse to day shift nurse.
[2018-05-21] MEDS: HYDROmorphone 1 MG INJ. 1 MG/ML AMPUL IVP PRN (07:29)
[2018-05-21] MEDS: DORZOLAMIDE 2% OPHTHALMIC SOLN 5ML OP SCH ×2 (07:32→21:09)
[2018-05-21] MEDS: BRIMONIDINE TARTRATE 0.2% 5 mL EYE DROPS OP SCH ×2 (07:32→21:09)
--- NOTE | 2018-05-21 07:57 | NUR ---
A/Ox4, pain stated on left hip. Patient left lower extremity is on Mccain's traction. IV is on the right wrist #20, running NS+20KCL@75ml, site intact and patent.. Left pedal pulse is palpable. POC instructed. Call light in place, bed locked at the lowest position
[2018-05-21 08:00] VITALS: BP_SYST 127
[2018-05-21] MEDS: metFORMIN HCL 500 MG TABLET PO SCH ×2 (08:00→18:01)
[2018-05-21] MEDS ORDERED: POLYMYXIN 500,000/BACIT.10,000 UNITS in NS IRR 1 L IR ONE (08:57)
[2018-05-21] MEDS: PRIMIDONE 250 MG TABLET PO SCH ×3 (09:00→21:08)
[2018-05-21] MEDS: ASPIRIN 81 MG TAB.CHEW PO SCH (09:00)
--- NOTE | 2018-05-21 09:00 | NUR ---
PATIENT IS TAKEN TO THE SURGERY. CONSENT FORMS ARE SIGNED, AND THEY ARE VERIFIED WITH PRE-OP NURSES.
[2018-05-21] MEDS ORDERED: NALOXONE HCL 0.4 MG/ML AMP (NARCAN) IVP PRN ×2 (10:30)
[2018-05-21] MEDS ORDERED: KETOROLAC TROMETHAMINE 60 MG/2 ML VIAL IM PRN (10:30)
[2018-05-21] MEDS ORDERED: DIPHENHYDRAMINE INJ 50 MG/ML VIAL IVP PRN (10:30)
[2018-05-21] MEDS ORDERED: NALBUPHINE HCL 10 MG/ML AMP IVP PRN (10:30)
[2018-05-21] MEDS ORDERED: ONDANSETRON HCL 4 MG/2 ML VIAL IVP PRN (10:30)
[2018-05-21] MEDS ORDERED: MORPHINE 2 MG/ML INJ. SYRINGE IVP SCH (10:30)
[2018-05-21] MEDS ORDERED: HYDROcodone/ACETAMIN 5-325 MG TAB (NORCO/ VICODIN) PO PRN ×2 (12:15)
--- NOTE | 2018-05-21 12:45 | NUR ---
patient returned from surgery. V/S is monitored. Pedal pulses palpable on both feet.
[2018-05-21] MEDS: KCL 20 mEq in D5/0.45NS 1000mL 1,000 ML IV SCH (12:54)
--- NOTE | 2018-05-21 13:34 | NUR ---
DC Planning: Received dcp to [facility] post left hip Hemiarhroplasty. CM is unable to send the referral package to [facility] today dt pending surgery report and PT tanya. Surgery day is today 05/21/18 started at 1230 pm.
[2018-05-21] MEDS: MULTIVITAMINS TAB 1 TABLET PO SCH (14:17)
[2018-05-21] MEDS: CEFAZOLIN 1 GM IVPB PREMIX 50 ML IV SCH ×2 (14:18→21:53)
[2018-05-21] MEDS: FUROSEMIDE 20 MG TABLET PO SCH (14:19)
--- NOTE | 2018-05-21 17:15 | NUR ---
PATIENT APPEARS AGITATED, AND URINE OUTPUT IS 25ML/HR OVER THE PAST [address] SOLARES IS CALLED, NO NEW ORDERS ARE GIVEN.
[2018-05-21] MEDS: ATORVASTATIN 20 MG TABLET PO SCH (18:01)
[2018-05-21] MEDS: LATANOPROST 2.5 ML DROPS (XALATAN) BOTH EYES SCH (18:01)
[2018-05-21] MEDS: traZODone HCL 50 MG TABLET (DESYREL) PO SCH (18:01)
--- NOTE | 2018-05-21 18:10 | NUR ---
DR. THOMAS WAS ALSO CALLED. HE CALLED BACK, AND THE CURRENT SITUATION IS RELAYED TO HIM. ORDERS WERE GIVEN, AND WILL BE CARRIED OUT.
[2018-05-21] MEDS ORDERED: LORazepam 2 MG/ML VIAL IVP PRN (18:30)
[2018-05-21] MEDS ORDERED: NS 250 ML IV ONE (18:30)
--- NOTE | 2018-05-21 18:45 | NUR ---
PATIENT IS STILL AGITATED. 0.5MG OF ATIVAN IVP IS GIVEN. WILL REASSESS.
--- NOTE | 2018-05-21 19:30 | NUR ---
Opening Notes Received patient in bed S/P surgery. Family is at the bedside. AAOx2. Able to speak clearly but confused trying to get out of bed. Samson catheter in place draining by gravity dark arminda urine. Infusing IV fluids at 75ml/hr with no s/s of infiltration or infection. Surgical site clean dry and intact. Patient able to move toes and flex and extend foot. O2 sat at 97% on 2L NC. Temperature at 100.3. oriented the patient to the room and use of the call light. Will monitor on rounds of changes of condition.
[2018-05-21 20:00] VITALS: BP_SYST 105
--- NOTE | 2018-05-21 20:15 | NUR ---
Spoke with and family at bedside regarding restraints. Educated on its use and indications. Informed family of risks and benefits and acknowledged understanding. Will contact Dr Hager regarding orders for restraints.
--- NOTE | 2018-05-21 20:22 | NUR ---
PAGED DR RAFAEL THOMAS REGARDING PT SPOKE WITH SHAHEED TRIED GET THROUGH DR CANALES NOT ANSWER WILL PAGE AGAIN AFTER 15 MINS
--- NOTE | 2018-05-21 20:35 | NUR ---
Patient temperature at 100.8. Cooling measures initiated with ice packs. Will contact Dr Hager for orders for Temp and Agitation.
--- NOTE | 2018-05-21 20:50 | NUR ---
PAGED DR TAZ THOMAS AGAIN SPOKE WITH NEY SHE CALLED HIS CELL PHONE AND CONNECTED US WITH HIM
--- NOTE | 2018-05-21 21:00 | NUR ---
Call Back from Dr Hager Regarding Agitation New orders received for 0.5mg Haldol IVP Q4P and Tylenol 650mg Q4P for temp greater than 100.5. PRN Restraints if needed. Mittens if pulling lines.
--- NOTE | 2018-05-21 21:15 | NUR ---
Blood Sugar 115. No coverage needed.
[2018-05-21] MEDS ORDERED: HALOPERIDOL LACTATE 5 MG/ML VIAL IVP PRN (21:30)
--- NOTE | 2018-05-21 21:40 | NUR ---
PAGED DR RAFAEL THOMAS FOR RN SPOKE WITH ENY SHE TRIED TO PATCH US THROUGH DR DID NOT ANSWER WILL CALL BACK IN 15 MINS IF NO RESPONSE
--- NOTE | 2018-05-21 22:08 | NUR ---
Administered IV antibiotics and tolerating well. Still agitated and family at bedside.
--- NOTE | 2018-05-21 22:11 | NUR ---
DR THOMAS Change of order. haldol IM 0.5mg Q4P and patient to stay [facility].
[2018-05-21] MEDS ORDERED: HALOPERIDOL LACTATE 5 MG/ML VIAL IM PRN (22:15)
[2018-05-21] MEDS: ACETAMINOPHEN 325 MG TABLET PO PRN (22:56)
--- NOTE | 2018-05-22 00:25 | NUR ---
Patient temp at 97.8. Still agitated. family at bedside. Safety precautions in place. Will continue to monitor.
[2018-05-22 01:30] VITALS: BP_SYST 109
--- NOTE | 2018-05-22 02:45 | NUR ---
Patient is asleep. Door closed to help with agitation and quietness. Son is at the bedside.
[2018-05-22] MEDS: KCL 20 mEq in D5/0.45NS 1000mL 1,000 ML IV SCH ×3 (04:39→23:50)
--- NOTE | 2018-05-22 05:00 | NUR ---
IV Re-Insertion : Left Hand 20g. Site clean dry and intact. No infiltration.
[2018-05-22] MEDS: HYDROmorphone 1 MG INJ. 1 MG/ML AMPUL IVP PRN ×4 (05:12→21:24)
[2018-05-22 06:07] LABS: BASOPHILS % (AUTO) 0.3 % (0.0-2.0); EOSINOPHILS # (AUTO) 0.1 K/uL (0.0-0.4); EOSINOPHILS % (AUTO) 0.8 % (0.0-4.0); HEMOGLOBIN 11.6 g/dL (14.0-18.0); LYMPHOCYTES # (AUTO) 2.9 K/uL (1.0-5.5); LYMPHOCYTES % (AUTO) 21.5 % (20.5-51.5); MEAN CORPUSCULAR HEMOGLOBIN 33 pg (27-31); MEAN CORPUSCULAR HGB CONC 35 % (32-36); MEAN CORPUSCULAR VOLUME 94 fL (79.0-98.0); MONOCYTES # (AUTO) 1.7 K/uL (0.0-1.0); MONOCYTES % (AUTO) 12.6 % (1.7-9.3); NEUTROPHILS # (AUTO) 8.9 K/uL (1.8-7.7); NEUTROPHILS % (AUTO) 64.8 % (40.0-70.0); PLATELET COUNT (AUTO) 96 K/uL (130-430); RED CELL DISTRIBUTION WIDTH 12.6 % (9.0-15.0); WHITE BLOOD COUNT (AUTO) 13.6 K/uL (4.8-10.8)
[2018-05-22 06:39] LABS: ANION GAP 7 (5-15); CALCIUM 8.6 mg/dL (8.4-11.0); CHLORIDE 101 mmol/L (98-107); CREATININE 1.45 mg/dL (0.55-1.30); GLUCOSE 132 mg/dL (70-99); POTASSIUM 4.1 mmol/L (3.5-5.1); SODIUM SERUM 132 mmol/L (136-145); UREA NITROGEN, BLOOD 20 mg/dL (8-21)
--- NOTE | 2018-05-22 06:43 | NUR ---
Closing Notes Patient is at the bedside. Mittens have been removed per request of the family. Family will stay for the time being to assist with the patient. Patient is less agitated and cooperative. Afebrile with temp of 98.4. IV infusing fluids d5 1/2 NS at 75ml/hr. All needs have been met and will endorse to the oncoming shift. Safety precautions in place.
--- NOTE | 2018-05-22 07:50 | NUR ---
Opening Note Patient sleeping comfortably in bed. No signs of discomfort or distress on room air. Vital signs taken. Extensions of RN, BEHAVIOR CLINICIAN and bell neck hammerer written on white board. Plan of care written on white board. Safety precautions in order, call light in reach and bed alarm on.
[2018-05-22] MEDS: metFORMIN HCL 500 MG TABLET PO SCH ×2 (08:21→16:54)
[2018-05-22] MEDS: PRIMIDONE 250 MG TABLET PO SCH ×3 (08:21→21:22)
[2018-05-22] MEDS: ASPIRIN 81 MG TAB.CHEW PO SCH (08:21)
[2018-05-22 08:22] VITALS: BP_SYST 113
[2018-05-22] MEDS: MULTIVITAMINS TAB 1 TABLET PO SCH (08:25)
[2018-05-22] MEDS: BRIMONIDINE TARTRATE 0.2% 5 mL EYE DROPS OP SCH ×2 (08:25→21:22)
[2018-05-22] MEDS: DORZOLAMIDE 2% OPHTHALMIC SOLN 5ML OP SCH ×2 (08:26→21:22)
[2018-05-22] MEDS: FUROSEMIDE 20 MG TABLET PO SCH (09:00)
[2018-05-22] MEDS ORDERED: ENOXAPARIN SODIUM 40 MG/0.4 ML SYRINGE SUBCUT SCH (09:00)
--- NOTE | 2018-05-22 09:20 | NUR ---
Pain Patient complains of pain 01/04. [place] 5-325mg Po administered at this time. Will continue to monitor pain management.
--- NOTE | 2018-05-22 11:23 | NUR ---
PAIN PATIENT COMPLAINS OF PAIN 05/06. DILAUDID 1MG IVP ADMINISTERED AT THIS TIME. WILL CONTINUE TO MONITOR PAIN MANAGEMENT.
[2018-05-22 12:00] VITALS: BP_SYST 146
--- NOTE | 2018-05-22 13:17 | NUR ---
PATIENT RESTING: Patient resting quietly. No acute distress noted. Vital signs within normal range.
--- NOTE | 2018-05-22 15:07 | NUR ---
DR NICHOLSON ROUNDS STATES PATIENT IS CONFUSED AND DISCONTINUED HALDOL AND ATIVAN. STATES HE WILL ORDER LABS AND ABGS FOR TOMORROW.
[2018-05-22] MEDS: ACETAMINOPHEN 325 MG TABLET PO PRN (15:38)
--- NOTE | 2018-05-22 15:41 | NUR ---
FEVER 100.5. TYLENOL 650MG PO ADMINISTERED AT THIS TIME. COOLING MEASURES CONTINUED.
[2018-05-22 16:49] VITALS: BP_SYST 126
[2018-05-22] MEDS: ATORVASTATIN 20 MG TABLET PO SCH (16:54)
[2018-05-22] MEDS: traZODone HCL 50 MG TABLET (DESYREL) PO SCH (16:54)
[2018-05-22] MEDS: LATANOPROST 2.5 ML DROPS (XALATAN) BOTH EYES SCH (16:54)
--- NOTE | 2018-05-22 16:55 | NUR ---
Pain Patient complains of pain 10/10. Dilaudid 1mg IVP administered per pain scale. Will continue to monitor pain management.
--- NOTE | 2018-05-22 18:40 | NUR ---
Closing Note Patient a/ox3, sleeping in bed. No complaints of pain or difficulty breathing on room air. Samson Catheter draining to gravity. IV patent and infusing fluids. Abductor pillow in place. All needs met throughout shift. Will endorse plan of care to noc shift. Safety precautions in order, call light in reach and bed alarm on.
--- NOTE | 2018-05-22 19:48 | NUR ---
INITIAL NOTE AT INITIAL ASSESSMENT, PATIENT IS RESTING IN BED, STABLE, NO SIGNS OF RESPIRATORY DISTRESS. IS AT BEDSIDE. PATIENT VERBALIZES TOLERABLE PAIN. PLAN OF CARE FOR THE EVENING IS COMMUNICATED WITH THE PATIENT AND HIS . CALL LIGHT- TEACH BACK IS SUCCESSFUL. BED IS LOCKED, ALARMED, AND AT THE LOWEST LEVEL.
[2018-05-22 19:50] VITALS: BP_SYST 115
--- NOTE | 2018-05-22 21:36 | NUR ---
PAIN NOTE PATIENT IS RESTING IN BED, STABLE, NO SIGNS OF RESPIRATORY DISTRESS. PATIENT VERBALIZES SEVERE PAIN, PRN MEDICATION FOR SEVERE PAIN WILL BE GIVEN PER ORDERS AT THIS TIME. CALL LIGHT WITHIN REACH. BED IS LOCKED, ALARMED, AND AT THE LOWEST LEVEL.
--- NOTE | 2018-05-22 23:12 | NUR ---
NOTE PATIENT IS SLEEPING, STABLE, NO SIGNS OF RESPIRATORY DISTRESS. CALL LIGHT WITHIN REACH. BED IS LOCKED, ALARMED, AND AT THE LOWEST LEVEL.
[2018-05-23] VITALS: BP_SYST 118
--- NOTE | 2018-05-23 00:10 | NUR ---
PATIENT RESTLESS NOTE PATIENT IS RESTLESS, AND CONFUSED DESPITE ATTEMPTS TO REORIENT THE PATIENT. HE IS REPOSITIONED FOR COMFORT, AND SEEMS TO BE CALMER, MD WILL BE PAGED FOR PRN MEDICATION IF INTERVENTION IS NOT EFFECTIVE. HE IS STABLE, NO SIGNS OF RESPIRATORY DISTRESS. CALL LIGHT WITHIN REACH. BED IS LOCKED, ALARMED, AND AT THE LOWEST LEVEL.
--- NOTE | 2018-05-23 00:20 | NUR ---
PAGE CALLED FOR DR. NICHOLSON. SPOKE TO DELONTE, DIALED [phone].
--- NOTE | 2018-05-23 00:31 | NUR ---
2ND PAGE CALLED FOR DR. NICHOLSON. SPOKE TO DELONTE, DIALED [phone].
[2018-05-23] MEDS: HYDROmorphone 1 MG INJ. 1 MG/ML AMPUL IVP PRN ×2 (01:15→08:42)
--- NOTE | 2018-05-23 02:06 | NUR ---
NOTE PATIENT IS SLEEPING, STABLE, NO SIGNS OF RESPIRATORY DISTRESS. CALL LIGHT WITHIN REACH. BED IS LOCKED, ALARMED, AND AT THE LOWEST LEVEL.
--- NOTE | 2018-05-23 04:02 | NUR ---
NOTE PATIENT IS SLEEPING, STABLE, NO SIGNS OF RESPIRATORY DISTRESS. CALL LIGHT WITHIN REACH. BED IS LOCKED, ALARMED, AND AT THE LOWEST LEVEL.
--- NOTE | 2018-05-23 05:10 | NUR ---
NOTE PATIENT IS SLEEPING, STABLE, NO SIGNS OF RESPIRATORY DISTRESS. CALL LIGHT WITHIN REACH. BED IS LOCKED, ALARMED, AND AT THE LOWEST LEVEL.
--- NOTE | 2018-05-23 06:37 | NUR ---
SAMAYOA D/C PATIENT'S SAMAYOA HAS BEEN D/C PER MD ORDERS FOR 2ND DAY POST OP. SAMAYOA CATHETER TIP INTACT UPON REMOVAL. PATIENT TOLERATED WELL.
--- NOTE | 2018-05-23 06:45 | NUR ---
CLOSING NOTE AT THIS TIME, PATIENT IS RESTING UPRIGHT IN BED, STABLE, NO SIGNS OF RESPIRATORY DISTRESS. BLOOD SUGAR CHECK REQUIRES NO INSULIN COVERAGE PER SSI ORDER BY MD. PATIENT VERBALIZES NO PAIN. CALL LIGHT WITHIN REACH. BED IS LOCKED, ALARMED, AND AT THE LOWEST LEVEL. INCENTIVE SPIROMETER AT BEDSIDE. PATIENT HAS BEEN TURNED [id number] THROUGHOUT THE SHIFT. NEUROVASCULAR CHECKS HAVE BEEN PERFORMED AT LEST L6YNSWN THROUGHOUT THE SHIFT. ALL NEEDS FOR PATIENT MED. WILL CONTINUE TO MONITOR UNTIL SHIFT REPORT IS GIVEN AT BEDSIDE TO AM NURSE.
[2018-05-23 07:21] LABS: ANION GAP 8 (5-15); CALCIUM 8.5 mg/dL (8.4-11.0); CHLORIDE 101 mmol/L (98-107); CREATININE 1.38 mg/dL (0.55-1.30); GLUCOSE 128 mg/dL (70-99); PHOSPHORUS 3.1 mg/dL (2.7-4.5); POTASSIUM 4.4 mmol/L (3.5-5.1); SODIUM SERUM 132 mmol/L (136-145); UREA NITROGEN, BLOOD 21 mg/dL (8-21)
[2018-05-23 07:53] LABS: HEMATOCRIT 31.1 % (36-54); HEMOGLOBIN 10.8 g/dL (14.0-18.0); MEAN CORPUSCULAR HEMOGLOBIN 33 pg (27-31); MEAN CORPUSCULAR HGB CONC 35 % (32-36); MEAN CORPUSCULAR VOLUME 94 fL (79.0-98.0); PLATELET COUNT (AUTO) 106 K/uL (130-430); RED BLOOD CELL COUNT(AUTO) 3.31 MIL/uL (4.2-6.2); RED CELL DISTRIBUTION WIDTH 12.6 % (9.0-15.0); WHITE BLOOD COUNT (AUTO) 12.5 K/uL (4.8-10.8)
[2018-05-23 08:00] VITALS: BP_SYST 118
--- NOTE | 2018-05-23 08:00 | NUR ---
Opening Note Report received from [facility] shift nurse. Patient is currently in bed and seems to be fidgeting and pulling at his sheets. However, he is alert and oriented x 3. Left hip dressing in place with some red drainage. Abductor pillow is in place. IV is on the left hand 20g running D51/2NS+20kcl@75. Call light is within reach and bed is in low position. Will continue to monitor.
[2018-05-23] MEDS: metFORMIN HCL 500 MG TABLET PO SCH ×2 (08:44→17:17)
[2018-05-23] MEDS: FUROSEMIDE 20 MG TABLET PO SCH (08:44)
[2018-05-23] MEDS: PRIMIDONE 250 MG TABLET PO SCH ×2 (08:44→14:36)
[2018-05-23] MEDS: ASPIRIN 81 MG TAB.CHEW PO SCH (08:44)
[2018-05-23] MEDS: MULTIVITAMINS TAB 1 TABLET PO SCH (08:44)
[2018-05-23] MEDS: BRIMONIDINE TARTRATE 0.2% 5 mL EYE DROPS OP SCH (08:45)
[2018-05-23] MEDS: DORZOLAMIDE 2% OPHTHALMIC SOLN 5ML OP SCH (08:46)
[2018-05-23 10:19] LABS: BAND % (MANUAL) 2 % (0-6); LYMPHOCYTES % (MANUAL) 12 % (20-46); MONOCYTES % (MANUAL) 7 % (0-11)
[2018-05-23 10:20] LABS: BASOPHILS % (MANUAL) 0 % (0-2); EOSINOPHILS % (MANUAL) 1 % (0-7)
--- NOTE | 2018-05-23 10:20 | NUR ---
Rounds Patient is resting in bed. Family is at the bedside. Call light is within reach.
--- NOTE | 2018-05-23 11:15 | NUR ---
DC PLANNING Called [facility] admitting dept, ph [phone], attempted to fax pt info [phone] busy fax [phone], called & informed faxed to different fax [phone].
[2018-05-23 11:22] VITALS: BP_SYST 127
--- NOTE | 2018-05-23 12:30 | NUR ---
PHYSICAL THERAPY CO-SIGN The Physical Therapy Progress Notes documented by Helicopter Engineer have been reviewed. I concur with the PM documentation of this COST ENGINEER. Plan: continue PT as per plan of care tomorrow and to work on increasing his gait distance at his tolerance. Reviewed/Co-Signed by: Bria Garcia,PT Documentation Done by: Shahbaz Ramirez, COST ENGINEER Addendum: 05/23/18 at 1350 by Bria Garcia PT Amended: Links added.
--- NOTE | 2018-05-23 12:37 | NUR ---
Rounds Patient is currently eating lunch in bed. No signs of distress noted at the moment.
[2018-05-23] MEDS: KCL 20 mEq in D5/0.45NS 1000mL 1,000 ML IV SCH (13:10)
--- NOTE | 2018-05-23 14:38 | NUR ---
Rounds Dr. Hager and Dr. Ramey both rounded on the patient. Orders were received.
--- NOTE | 2018-05-23 15:43 | NUR ---
DC PARMJIT Luo from [facility], ph [phone], came & did eval spoke w @ bedside. Accepted pt to call once have order. Spoke w Dr Ramey in [facility] station & informed, states dc to [facility]. Called & informed Puja of dc order, states pt going to room 1231A anytime after 1700, # for report [phone]. Spoke w pt & son @ bedside, agreeable w dc today to [facility], states 1829 would be good time. Son states will inform pt's . Informed pt's nurse Marino, 1829 good time. Called & ordered CD from radiology. Called & set up ambulance transfer w [facility] for 1829 pick up man, ph [phone]. transfer packet in [facility] station.
[2018-05-23 15:49] VITALS: BP_SYST 121
[2018-05-23 16:28] VITALS: BP_SYST 121
--- NOTE | 2018-05-23 16:42 | NUR ---
Rounds Patient is resting in bed. Left hip dressing changed per MD order. [place] are intact. Gauze and paper tape applied. Patient tolerated well.
[2018-05-23] MEDS: LATANOPROST 2.5 ML DROPS (XALATAN) BOTH EYES SCH (17:17)
[2018-05-23] MEDS: traZODone HCL 50 MG TABLET (DESYREL) PO SCH (17:17)
[2018-05-23] MEDS: ATORVASTATIN 20 MG TABLET PO SCH (17:17)
--- NOTE | 2018-05-23 18:45 | NUR ---
Transition of Care Note Report given to Delicia at [facility]. All transition of care paperwork were provided to the paramedics. IV left in place. Patient left the unit in stable condition accompanied by paramedics and family.
== END 2018-05-23 18:49 | DRG 469 ==
LOC: SED 09:53 → SMU 13:58
PROVIDERS: ADMIT Family Medicine; ATTEND Family Medicine
PROC: 0SRS0JA Replacement of Left Hip Joint, Femoral Surface with Synthetic Substitute, Uncemented, Open Approach (ICD-10-PCS; principal; 2018-05-21 09:00)
DX: S72.012A Unspecified intracapsular fracture of left femur, initial encounter for closed fracture (principal); G93.41 Metabolic encephalopathy; M25.052 Hemarthrosis, left hip; E11.9 Type 2 diabetes mellitus without complications; I25.10 Atherosclerotic heart disease of native coronary artery without angina pectoris; M19.90 Unspecified osteoarthritis, unspecified site; F32.9 Major depressive disorder, single episode, unspecified; E66.01 Morbid (severe) obesity due to excess calories; R29.6 Repeated falls; E78.5 Hyperlipidemia, unspecified; I10 Essential (primary) hypertension; W19.XXXA Unspecified fall, initial encounter; Y93.89 Activity, other specified; Y92.89 Other specified places as the place of occurrence of the external cause; Y99.8 Other external cause status; Z87.891 Personal history of nicotine dependence; Z95.5 Presence of coronary angioplasty implant and graft; Z79.899 Other long term (current) drug therapy; Z79.82 Long term (current) use of aspirin; I25.2 Old myocardial infarction; Z85.9 Personal history of malignant neoplasm, unspecified; Z68.32 Body mass index [BMI] 32.0-32.9, adult
CPT/HCPCS: 36415; 36600; 71045; 72170-TC; 72192-TC; 73502; 73564; 80048; 80053; 81000-TC; 82140-TC; 82550-TC; 82803-TC; 82962; 83735-TC; 84100-TC; 85007; 85025; 85027; 85610-TC; 85730-TC; 86886; 86900; 86901; 87081; 88305; 88311; 93005; 93306; 96374; 96375; 97110-GP; 97530-GP; 97535-GP; 99285; C1776; C9290; J0690; J1170; J1630; J1815; J2001; J2060; J2250; J2704; J3010; J3490; J7050; J7120; L1830